=== PATIENT | female | born 2000 | race Two or more races ===

== ENCOUNTER 2024-03-08 01:34 | Emergency (ER) | payer MEDICAID ==
[~2024-03-08] VITALS: Ht 152.4 cm; Wt 66.0 kg
[2024-03-08 01:38] VITALS: O2SAT 100
[2024-03-08 03:04] LABS: BASOPHILS % 0.5 % (0.0-2.0); EOSINOPHILS % 0.4 % (0.0-5.0); HEMATOCRIT. 41.3 % (36.0-48.0); HEMOGLOBIN. 13.7 g/dL (12.0-16.0); LYMPHOCYTES % 14.8 % (20.0-50.0); MEAN CORPUSCULAR HEMOGLOBIN 29.1 pg (28.0-32.0); MEAN CORPUSCULAR HGB CONC 33.3 g/dL (31.0-37.0); MEAN CORPUSCULAR VOLUME 87.5 fL (81.0-99.0); MEAN PLATELET VOLUME 7.9 fl (7.4-10.4); MONOCYTES % 6.4 % (2.0-8.0); NEUTROPHILS % 77.9 % (40.0-76.0); PLATELET 244 x1000/uL (130-400); RED BLOOD CELL COUNT 4.72 mill/uL (4.2-5.4); RED CELL DISTRIBUTION WIDTH 14.9 % (11.6-14.6); WHITE BLOOD COUNT 7.6 x1000/uL (4.5-11.0)
[2024-03-08 04:19] LABS: CALCIUM 10.9 mg/dL (8.7-10.4); CHLORIDE 103 mEq/L (98-107); POTASSIUM 3.8 mEq/L (3.5-5.1); SODIUM 138 mEq/L (136-145)
[2024-03-08 04:20] LABS: CARBON DIOXIDE 28 mEq/L (21-32)
[2024-03-08 04:25] LABS: CREATININE 0.8 mg/dL (0.6-1.0); GLUCOSE 108 mg/dL (70-105)
[2024-03-08 04:26] LABS: UREA NITROGEN BLOOD 12 mg/dL (9-23)
[2024-03-08 04:37] LABS: TROPONIN I HIGH SENSITIVITY < 4 ng/L (3.0-34)
[2024-03-08] MEDS ORDERED: ACETAMINOPHEN 325MG TABLET PO ONE (05:30)
[2024-03-08] MEDS ORDERED: MAGNESIUM/ALUMINUM HYDROXIDE/SIMETHICONE 30ML UDC PO ONE (05:30)
[2024-03-08] MEDS ORDERED: FAMOTIDINE 20MG TABLET PO ONE (05:30)
[2024-03-08] MEDS ORDERED: FAMO-135 MT (07:26)
[2024-03-08 07:45] VITALS: BP 110/77; PULSE 75; RESP 17; TEMP 98
[2024-03-08] MEDS: ACETAMINOPHEN 325MG TABLET PO NR (07:50)
[2024-03-08] MEDS: MAGNESIUM/ALUMINUM HYDROXIDE/SIMETHICONE 30ML UDC PO NR (07:50)
[2024-03-08] MEDS: FAMOTIDINE 20MG TABLET PO NR (07:50)
== END 2024-03-08 08:12 | disposition home or self-care (01) ==
LOC: ER 01:34
DX: R07.9 Chest pain, unspecified (principal)
CPT/HCPCS: 80048; 85025; 84484; 36415; 71045; 93005; 99285; Z7610 ×2

== ENCOUNTER 2024-06-02 12:08 | Emergency (ER) | payer MEDICAID ==
[~2024-06-02] VITALS: Ht 160 cm; Wt 68.0 kg
[~2024-06-02 12:08] MED LIST: FAMO-135 MT
[2024-06-02 12:10] VITALS: BP 114/70; PULSE 67; RESP 18; TEMP 98.2; O2SAT 100
[2024-06-02] MEDS ORDERED: FLUC150T46 MT (12:24)
== END 2024-06-02 14:41 | disposition home or self-care (01) ==
LOC: ER 12:08
DX: B37.31 Acute candidiasis of vulva and vagina (principal)
CPT/HCPCS: 99283

== ENCOUNTER 2024-09-05 08:06 | Emergency (ER) | payer MEDICAID ==
[~2024-09-05] VITALS: Ht 152.4 cm; Wt 75.0 kg
[~2024-09-05 08:06] MED LIST changes: +FLUC150T46 MT
[2024-09-05 08:10] VITALS: O2SAT 99
[2024-09-05] MEDS: IBUPROFEN 600MG TABLET PO STA (08:52)
[2024-09-05] MEDS ORDERED: IBUP-2029 MT (08:56)
[2024-09-05 09:14] VITALS: BP 124/59; PULSE 84; RESP 18; TEMP 36.89184; O2SAT 100
== END 2024-09-05 09:14 | disposition home or self-care (01) ==
LOC: ER 08:06
DX: B34.9 Viral infection, unspecified (principal); Z20.822 Contact with and (suspected) exposure to COVID-19
CPT/HCPCS: 87426; 87804; 99283

== ENCOUNTER 2024-10-01 10:36 | Emergency (ER) | payer MEDICAID ==
[~2024-10-01] VITALS: Ht 160 cm; Wt 66.0 kg
[~2024-10-01 10:36] MED LIST changes: +IBUP-2029 MT
[2024-10-01 10:38] VITALS: O2SAT 98
[2024-10-01] MEDS: ACETAMINOPHEN 325MG TABLET PO ONE (11:42)
[2024-10-01] MEDS ORDERED: NAPR220C61 MT (12:12)
[2024-10-01 12:31] VITALS: BP 133/70; PULSE 81; RESP 18; TEMP 36.94740; O2SAT 98
== END 2024-10-01 12:50 | disposition home or self-care (01) ==
LOC: ER 10:36
DX: S69.92XA Unspecified injury of left wrist, hand and finger(s), initial encounter (principal); G89.11 Acute pain due to trauma; W23.2XXA Caught, crushed, jammed or pinched between a moving and stationary object, initial encounter; Y93.89 Activity, other specified; Y92.89 Other specified places as the place of occurrence of the external cause; Y99.8 Other external cause status
CPT/HCPCS: 73130; 99283

== ENCOUNTER 2024-10-16 10:55 | Emergency (ER) | payer MEDICAID ==
[~2024-10-16] VITALS: Ht 152.4 cm; Wt 63.0 kg
[~2024-10-16 10:55] MED LIST changes: +NAPR220C61 MT
[2024-10-16 10:56] VITALS: O2SAT 100
[2024-10-16 11:10] VITALS: BP 122/87; PULSE 87; RESP 18; O2SAT 99
[2024-10-16] MEDS: LIDOCAINE HCL/PF 1% 10 MG/ML 5ML VIAL INFIL ONE (12:04)
[2024-10-16] MEDS: BACITRACIN ZINC OINT UDPKT TOP ONE (12:04)
[2024-10-16 12:16] VITALS: TEMP 98.6
[2024-10-16] MEDS: ACETAMINOPHEN 325MG TABLET PO ONE (12:16)
== END 2024-10-16 14:21 | disposition home or self-care (01) ==
LOC: ER 11:30
DX: S61.312A Laceration without foreign body of right middle finger with damage to nail, initial encounter (principal); X58.XXXA Exposure to other specified factors, initial encounter; Y93.89 Activity, other specified; Y92.89 Other specified places as the place of occurrence of the external cause; Y99.8 Other external cause status
CPT/HCPCS: 99282; J3490